=== PATIENT | male | born 1995 | race Caucasian/White ===

== ENCOUNTER 2022-11-14 23:49 | Emergency (ER) | payer SELFPAY ==
[~2022-11-14] VITALS: Ht 175.3 cm; Wt 68.0 kg
[2022-11-14 23:52] VITALS: BP 99/62; PULSE 100; RESP 10; TEMP 96; O2SAT 95
--- NOTE | 2022-11-14 23:52 | NUR ---
PT BIBA ALS TO BED 11
[2022-11-15] MEDS ORDERED: NACL 0.9% 1,000 ML IV ONE
--- NOTE | 2022-11-15 00:22 | NUR ---
Patient does not wish to proceed with medical care recommended by Dr. Gregg. Patient given information related to possible complications, up to and including , which could occur as a result of leaving hospital at this time. Patient verbalizes understanding of risks involved leaving against medical advice. Patient has signed AMA form.
--- NOTE | 2022-11-15 00:22 | NUR ---
IV removed, catheter intact and site benign. Applied folded 4x4 gauze and tape to stop bleeding.
== END 2022-11-15 00:22 | disposition left against medical advice (07) ==
LOC: MED 23:49
DX: R55 Syncope and collapse (principal); R42 Dizziness and giddiness
CPT/HCPCS: 93005; 99283; J7030